=== PATIENT | female | born 1955 | race Caucasian/White ===

== ENCOUNTER 2017-07-29 07:00 | Emergency (ER) | payer OTHER ==
[~2017-07-29] VITALS: Wt 63.0 kg
[2017-07-29] MEDS ORDERED: AZITHROMYCIN 250 MG TAB PO ONE (08:00)
--- NOTE | 2017-07-29 08:09 | RADRPT ---
PROCEDURE: XR Chest. CLINICAL INDICATION: 61-year-old female with cough. TECHNIQUE: Single frontal view of the chest was obtained. COMPARISON: None FINDINGS: The soft tissues are normal. There are degenerative osteophytes in the thoracic spine. The heart, cardiomediastinal silhouette and hilar structures are normal. The pulmonary vasculature is normal. There is a left-sided aorta. The lungs are clear. The costophrenic angles are normal. IMPRESSION: 1. There is no evidence of active cardiopulmonary disease. 2. Spondylosis of the thoracic spine. RPTAT:AAJJ Physician Christen Date Time Electronically viewed and signed by Physician Christen on 07/29/2017 08:09 MYESHA/
[2017-07-29] MEDS ORDERED: AZIT250T94 PO (08:13)
[2017-07-29] MEDS ORDERED: BENZ100C70 PO (08:13)
--- NOTE | 2017-07-29 08:39 | ERD ---
ER Documentation Chief Complaint Date/Time DATE: 07/29/17 TIME: 08:37 Chief Complaint CHEST TIGHTNESS AND THROAT TIGHTNESS WITH MILD SOB FOR 3 DAYS. MILD CP HPI Patient is a 61-year-old female with no medical problems who presents with a cough. She started 3 days ago with a cough and the cough has been productive of phlegm. Last night she felt like her throat was closing as well. She denies fevers. She tried DayQuil at 3 AM. She does not know the name of her primary doctor at this time. ROS All systems reviewed and are negative except as per history of present illness. Medications Home Meds Active Scripts Benzonatate* (Tessalon Perle*) 100 Mg Capsule, 100 MG PO Q8H Y for COUGH, #30 CAP Prov:WINSTON CALLEJAS MD 07/29/17 Azithromycin* (Zithromax*) 250 Mg Tablet, 250 MG PO DAILY for 4 Days, TAB Prov:WINSTON CALLEJAS MD 07/29/17 Allergies Allergies: Coded Allergies: No Known Allergy (Unverified , 07/29/17) PMhx/Soc Medical and Surgical Hx: pt denies Medical Hx FmHx Family History: diabetes Physical Exam Vitals Vital Signs Date Time Temp Pulse Resp B/P Pulse Ox O2 Delivery O2 Flow Rate FiO2 07/29/17 07:04 98.5 83 20 180/83 98 Physical Exam Const: No acute distress Head: Atraumatic Eyes: Normal Conjunctiva ENT: Normal External Ears, Nose and Mouth.No oropharyngeal swelling or stridor over the neck Neck: Full range of motion..~ No meningismus. Resp: Clear to auscultation bilaterally Cardio: Regular rate and rhythm, no murmurs Abd: Soft, non tender, non distended. Normal bowel sounds Skin: No petechiae or rashes Back: No midline or flank tenderness Ext: No cyanosis, or edema Neur: Awake and alert Psych: Normal Mood and Affect Results 24 hrs Current Medications Medications (Trade) Dose Ordered Sig/Glen Route PRN Reason Start Time Stop Time Status Last Admin Dose Admin Azithromycin (Zithromax) 500 mg ONCE ONCE PO 07/29/17 08:00 07/29/17 08:01 DC 07/29/17 08:09 Procedures/MDM EKG read by me: Rate/Rhythm: Regular rate and rhythm at a normal rate Intervals: Normal Impression: No evidence of ischemia or arrhythmia Chest x-ray shows no signs of pneumonia or pneumothorax per radiology. Patient is a 61-year-old female who presents with a cough with productive phlegm. EKG is negative and chest x-ray shows no pneumonia or pneumothorax. At this point I doubt acute coronary syndrome, pneumonia, pneumothorax, pulmonary embolism, or aortic dissection. She may have an acute bronchitis I will treat her with 5 days of Zithromax and the first dose was given in the emergency department. I will also give a prescription for Tessalon Perles for cough. She will need to follow-up with her primary doctor within 24-48 hours for reevaluation. Departure Diagnosis: Primary Impression: Bronchitis Additional Impression: Cough Condition: Fair Patient Instructions: What Is Bronchitis? Referrals: Your doctor Additional Instructions: Llame al doctor MAANA y jeni denise JARON PARA DENTRO DE 1-2 BYERS.Dgale a la secretaria que nosotros le instruimos hacer esta jaron.Avise o llame si vides condicin se empeora antes de la jaron. Regresa aqui si peor o no mejor. WINSTON CALLEJAS MD Jul 29, 2017 08:39
== END 2017-07-29 10:01 | disposition home or self-care (01) ==
LOC: E/R 07:00
DX: J40 Bronchitis, not specified as acute or chronic (principal); R06.02 Shortness of breath
CPT/HCPCS: 71010; 93005; Z7502; Z7610